=== PATIENT | male | born 1940 | race Caucasian/White ===

== ENCOUNTER 2021-05-15 23:36 | Emergency (ER) | payer MEDICARE, OTHER ==
[~2021-05-15] VITALS: Ht 167.6 cm; Wt 104.5 kg
[~2021-05-15 23:36] MED LIST: AMLO-186 PO; ASPI-630 PO; CLOT12CR2 TP; GLIM4TAB8 PO; INSU100V13 SQ; LORA10TA3 PO; METF850T8 PO; METO-247 PO; MULT-208 PO; NITR0.4T22 SL; OMEP20TA8 PO; PROVENTIL HFA6.7 GM IH; SILD50TA PO; SIMV20TA18 PO; SITA100T PO; VALS320T2 PO; [UNRECOGNIZED DRUG - CODE] DT
[2021-05-16] MEDS ORDERED: LIDOCAINE 1% Multi-Dose 20 ML VIAL. INJ ONE (01:45)
--- NOTE | 2021-05-16 03:52 | RAD ---
XR LT TOE 2+ VIEWS Clinical Indication: Reason: first toe, unclear injury mechanism, dorsal laceration / Spl. Instructio ns: / History: Comparison: None. Findings: There is no acute fracture of the visualized foot. The joint spaces are maintained. The mineralizatio n is normal. There is a soft tissue laceration dorsally overlying the distal proximal phalanx of the great toe. No radiopaque foreign body is identified. No soft tissue swelling is seen. IMPRESSION: No acute fracture. Electronically signed by: Donnie Hudson MD (05/16/2021 3:50 AM) [facility]
[2021-05-16] MEDS ORDERED: AMOX1TAB61 PO (05:37)
--- NOTE | 2021-05-16 05:37 | PHYS DOC ---
General Adult EDM: Chief Complaint: LACERATION/AVULSION HPI: HPI: Patient is a 81 year old male with history of DM who presents with a laceration over his left great toe. States that he was walking and stubbed his toe on something earlier in the day. Did not notice that he had cut it until later tonight. States that he is injury happened approximately noon. Denies any other injuries. Review of Systems: Review of Systems: Constitutional: Denies fever or chills. [] Eyes: Denies change in visual acuity. [] HENT: Denies nasal congestion or sore throat. [] Respiratory: Denies cough or shortness of breath. [] Cardiovascular: Denies chest pain or edema. [] GI: Denies abdominal pain, nausea, vomiting, bloody stools or diarrhea. [] : Denies dysuria. [] Musculoskeletal: Denies back pain or joint pain. [] Integument: Reports toe laceration Neurologic: Denies headache, focal weakness or sensory changes. [] Endocrine: Denies polyuria or polydipsia. [] Lymphatic: Denies swollen glands. [] Psychiatric: Denies depression or anxiety. [] Heart Score: C/O Chest Pain: No Risk Factors: Risk Factors: DM, Current or recent (<one month) smoker, HTN, HLP, family history of CAD, obesity. Risk Scores: Score 0 - 3: 2.5% MACE over next 6 weeks - Discharge Home Score 4 - 6: 20.3% MACE over next 6 weeks - Admit for Clinical Observation Score 7 - 10: 72.7% MACE over next 6 weeks - Early Invasive Strategies Current Medications: Current Medications Medications (Trade) Dose Ordered Sig/[facility] Start Time Stop Time Status Last Admin Dose Admin Lidocaine HCl (Lidocaine 1% 20ml Vial) 20 ml 1X ONCE 05/16/21 01:45 05/16/21 01:46 DC Allergies: Allergies: Allergies Coded Allergies Type Severity Reaction Last Updated Verified No Known Drug Allergies 04/11/14 No Physical Exam: PE: Constitutional: Well developed, well nourished, no acute distress, non-toxic appearance. [] HENT: Normocephalic, atraumatic, bilateral external ears normal, oropharynx moist, no oral exudates, nose normal. [] Eyes: PERRLA, EOMI, conjunctiva normal, no discharge. [] Neck: Normal range of motion, no tenderness, supple, no stridor. [] Cardiovascular:Heart rate regular rhythm, no murmur [] Skin: 3 cm laceration over the dorsum of the left great toe proximal to the interphalangeal joint. Back: No tenderness, no CVA tenderness. [] Extremities: Laceration as above to the left great toe. He can initiate with flexion and extension of the toe. The extensor tendon is visible, but I do not see evidence of violation. Cap refill is adequate. Neurologic: Alert and oriented X 3, normal motor function, normal sensory function, no focal deficits noted. [] Psychologic: Affect normal, judgement normal, mood normal. [] EKG: EKG: [] Radiology/Procedures: Radiology/Procedures: Indication: Left toe laceration Procedure: The patient was placed in the appropriate position and anesthesia around the laceration was injected with 1% lidocaine without epinephrine. The area was then cleansed with chlorhexidine and irrigated with approximately 500 cc of tap water. Extensor tendon was visible, but did not appear violated. The laceration was closed with #6 4-0 Ethilon suture in a simple interrupted fashion. Total repaired wound length: 3 cm. Other Items: None The patient tolerated the procedure well. Complications: None.[] Impression: [facility] [id number] [facility] [place], [place] [id number] IMAGING REPORT Signed PATIENT: SHARRON BAIRES ACCOUNT: [id number] : 1940 LOCATION: ER AGE: 81 SEX: M EXAM STATUS: REG ER ORD. PHYSICIAN: JADA SALAS MD REASON: first toe, unclear injury mechanism, dorsal laceration PROCEDURE: TOES LEFT XR LT TOE 2+ VIEWS Clinical Indication: Reason: first toe, unclear injury mechanism, dorsal laceration / Spl. Instructions: / History: Comparison: None. Findings: There is no acute fracture of the visualized foot. The joint spaces are maintained. The mineralization is normal. There is a soft tissue laceration dorsally overlying the distal proximal phalanx of the great toe. No radiopaque foreign body is identified. No soft tissue swelling is seen. IMPRESSION: No acute fracture. Electronically signed by: Donnie Hudson MD (05/16/2021 3:50 AM) [facility] DICTATED and SIGNED BY: DONNIE HUDSON MD DATE: 05/16/21 [id number] 0 Course & Med Decision Making: Course & Med Decision Making Pertinent Labs and Imaging studies reviewed. (See chart for details) 81-year-old diabetic man who presents with a left toe laceration. Extensor tendon is visible, but does not appear violated and the patient can initiate extension. given his diabetes and the greater than 12 h prior to closure I have elected to treat him with prophylactic Augmentin. I have asked that he follow-up with his PCP early next week, and then again for final suture removal for close wound monitoring. [place] Disclaimer: [place] Disclaimer: This electronic medical record was generated, in whole or in part, using a voice recognition dictation system. Departure Departure Impression: Primary Impression: Toe laceration Disposition: HOME / SELF CARE / HOMELESS Condition: STABLE Referrals: ODELL LEE MD (PCP) Schedule follow-up appointment on Wednesday or Wednesday of next week for wound check. You will need to have the sutures removed in 7-10 days. Additional Instructions: We repaired your laceration with 6 sutures. These will need to come out in 7 to 10 days. Please schedule appointment with your primary care doctor, or visit in ED or urgent care to have these removed. I would like you to schedule follow- up appointment on Wednesday or Wednesday of next week to ensure that your wound is healing well prior to suture removal. Keep the area clean and dry. Keep it dressed. Use an ointment such as Neosporin or bacitracin on it. Please pear picker your Augmentin prescription and take as prescribed. If you have increasing swelling, pain, redness, or warmth these are all signs of potential infection. If these occur please see your doctor. Scripts Amoxicillin/Potassium Clav (AUGMENTIN 875-125 TABLET) 1 Each Tablet 1 TAB PO Q12HR for 7 Days, #14 TAB 0 Refills Prov: JADA SALAS MD 05/16/21 JADA SALAS MD May 16, 2021 05:37
[2021-05-16] MEDS ORDERED: DIPH,PERTUSS(ACELL),TET VAC/PF 0.5 ML SYRINGE. VAX IM ONE (06:30)
[2021-05-16 06:37] VITALS: BP 185/81
== END 2021-05-16 06:50 | disposition home or self-care (01) ==
LOC: ER 23:36
DX: S91.112A Laceration without foreign body of left great toe without damage to nail, initial encounter (principal); W22.8XXA Striking against or struck by other objects, initial encounter; Y93.01 Activity, walking, marching and hiking; Y92.89 Other specified places as the place of occurrence of the external cause; Y99.8 Other external cause status
CPT/HCPCS: 12002; 73660; 90471; 90715; 99285; J3490